=== PATIENT | male | born 1945 | race Caucasian/White ===

== ENCOUNTER 2018-02-15 07:28 | Day surgery (SDC) | payer OTHER, BC ==
[2018-02-15] MEDS ORDERED: TAMSULOSIN HCL 0.4 MG CAP.ER.24H (FP) ONE (08:03)
[2018-02-15] MEDS ORDERED: MIDAZOLAM HCL 2 MG/2 ML SINGLE DOSE VIAL ONE (08:20)
[2018-02-15] MEDS ORDERED: DEXAMETHASONE SOD PHOSPHATE/PF 10 MG/ML SDV ONE (08:20)
[2018-02-15 08:21] VITALS: BMI 21.2
[2018-02-15] MEDS ORDERED: BUPIVACAINE HCL/PF (5 MG/ML) 30 ML VIAL IJ ONE (08:21)
[2018-02-15] MEDS ORDERED: ROCURONIUM BROMIDE 50 MG/5 ML VIAL ONE ×2 (10:00→10:58)
[2018-02-15] MEDS ORDERED: fentaNYL CITRATE 250 MCG/5 ML VIAL ONE (10:00)
[2018-02-15] MEDS ORDERED: PROPOFOL 20 ML ONE (10:00)
--- NOTE | 2018-02-15 10:20 | HP ---
DATE OF ADMISSION: 02/15/2018 See previous dictation of January 10, 2018. There is essentially no change. HISTORY: This 72-year-old man was admitted through the ambulatory surgical service for bilateral laparoscopic inguinal hernia repair with mesh/possible open left repair. 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 No history of hypertension, heart disease, diabetes, respiratory, renal, or lymphatic insufficiency. PAST SURGICAL HISTORY: Significant only for head and neck surgery. ALLERGIES: None known. REGULAR MEDICATIONS: None. SOCIAL HISTORY: Positive for tobacco 1 pack per day, positive alcohol a couple of beers every other day. FAMILY HISTORY: Father secondary to trauma. Mother , no medical issues. REVIEW OF SYSTEMS: Nil. PHYSICAL EXAMINATION: Abdomen: Bilateral obvious inguinal hernias with the left larger than the right. Scrotum unremarkable. Testes normal with some atrophy. IMPRESSION: Bilateral inguinal hernias, left greater than right. PLAN: Bilateral laparoscopic inguinal hernia repair with mesh, possible open left repair. Indications, alternatives, possible complications were reviewed. Consent obtained. Anthony [id number] cc: Rene Horan
[2018-02-15] MEDS ORDERED: ceFAZolin SODIUM 1 GM VIAL ONE (10:31)
[2018-02-15] MEDS ORDERED: DEXAMETHASONE SOD PHOSPHATE 4 MG/1 ML VIAL ONE (10:47)
[2018-02-15] MEDS ORDERED: ONDANSETRON 4 MG/2 ML VIAL ONE ×2 (10:47→11:18)
[2018-02-15] MEDS ORDERED: oxyCODONE HCL 5 MG TABLET PO PRN (10:56)
[2018-02-15] MEDS ORDERED: ONDANSETRON 4 MG/2 ML VIAL IVPUSH PRN (10:56)
[2018-02-15] MEDS ORDERED: LACTATED RINGERS SOLUTION 1,000 ML IV SCH (11:00)
[2018-02-15] MEDS ORDERED: NEOSTIGMINE METHYLSULFATE 0.5 MG/ML - 10 ML MDV ONE (11:15)
[2018-02-15] MEDS ORDERED: GLYCOPYRROLATE 0.2 MG/1 ML VIAL ONE (11:16)
--- NOTE | 2018-02-15 12:19 | OP ---
DATE OF OPERATION: 02/15/2018 PREOPERATIVE DIAGNOSIS: Bilateral inguinal hernias. POSTOPERATIVE DIAGNOSIS: Direct left inguinal hernia/indirect right inguinal hernia. PROCEDURE: Bilateral laparoscopic inguinal hernia repair with mesh. OPERATING SURGEON: Dorinda Collier MD SYSTEMS DESIGN ENGINEER: Albert Torrez MD ANESTHESIA: Rehana Sorensen M.D. (general) HISTORY: A 72-year-old man admitted to the hospital for bilateral laparoscopic inguinal hernia surgery with mesh. Indications, alternatives, possible complications reviewed. Consent obtained. PROCEDURE: With the patient in the supine position, after general anesthesia, the abdomen was prepped and draped in sterile fashion using chlorhexidine. A small incision was made just beneath the umbilicus and just off to the right of the midline. The subcutaneous tissues were . The anterior rectus sheath was incised and the rectus muscle fibers retracted laterally in both directions. The preperitoneal space was identified and the dissecting balloon was advanced in the preperitoneal space toward the pubis. The balloon was insufflated, creating a dissection. The balloon was removed, leaving the structural collar in place. Preperitoneal space was then insufflated to an adequate pressure volume using CO2 gas. The camera lens was passed at this point and the preperitoneal space visualized. An 11-mm port was placed in the midline midway between the umbilicus and pubis. The operating instruments were passed through this port. Exploration of the preperitoneal space allowed recognition of the anatomy. On the left side, there was a direct inguinal hernia with a small clinically insignificant indirect sac. On the right side, however, there was a larger indirect sac noted with some attenuation of the direct space but with no obvious direct herniation. There were no femoral components noted on either side. First directing our attention to the left side, the cord was skeletonized and the small sac further reduced. The left side was repaired using a piece of 4 x 6- inch Parietex mesh. The mesh was keyholed and placed into the preperitoneal space. It was tacked in place with counterpalpation and an AbsorbaTacker. The mesh was fixed superiorly to the iliopubic tract. The mesh was fixed anteriorly to the anterior abdominal wall. The mesh was fixed inferiorly to Ferny ligament and the pubic tubercle. The keyhole leaf was wrapped around the cord and tacked in place, reconstructing the internal ring. Now directing our attention to the contralateral side, the indirect component was reduced with skeletonization of the cord. The right side was repaired with the same mesh and technique as described above for the left. After completion of the repair, the mesh was noted to overlap in the midline. Adequate hemostasis was ensured. The low midline port was removed under direct vision. No bleeding identified. Ultimately, the camera lens and structural port were removed from the infraumbilical incision and the gas was allowed to escape from the preperitoneal space. The fascia at each of the port sites was closed using interrupted No. 1 Vicryl sutures. Both skin wounds were closed using subcuticular 4-0 Biosyn sutures. COUNTS: Needle, sponge and instrument count correct. ESTIMATED BLOOD LOSS: Minimal. SPECIMEN: None. DRAINS: None. IMPLANT: Mesh x2. The patient tolerated the procedure. Procedure was terminated. DORINDA COLLIER M.D. [id number] MTDD
[2018-02-15] MEDS ORDERED: oxyCODONE HCL 5 MG TABLET ONE (13:29)
[2018-02-15 14:57] VITALS: BP 117/70; PULSE 71; TEMP 98.1
== END 2018-02-15 15:00 | disposition home or self-care (01) ==
LOC: FASU 07:28
PROVIDERS: ATTEND Surgery
PROC: 0YUA4JZ Supplement Bilateral Inguinal Region with Synthetic Substitute, Percutaneous Endoscopic Approach (ICD-10-PCS; principal; 2018-02-15 10:34)
DX: K40.20 Bilateral inguinal hernia, without obstruction or gangrene, not specified as recurrent (principal)
CPT/HCPCS: 94760

== ENCOUNTER 2022-06-29 16:19 | Emergency (ER) | payer OTHER, BC ==
[2022-06-29 16:38] VITALS: TEMP 98.2; BMI 51.7
[2022-06-29 17:31] VITALS: BP 129/78; PULSE 85; RESP 18
== END 2022-06-29 17:37 | disposition left against medical advice (07) ==
LOC: JER 16:19
DX: R55 Syncope and collapse (principal)
CPT/HCPCS: 82962; 93005; 93010; 99283-25